=== PATIENT | female | born 1955 | race Two or more races ===

== ENCOUNTER 2023-02-19 15:32 | Observation (INO) | payer MEDICARE, OTHER ==
[~2023-02-19] VITALS: Ht 170.2 cm; Wt 76.0 kg
[2023-02-19] MEDS ORDERED: VITA100054 PO ×2 (16:12)
[2023-02-19] MEDS ORDERED: ESTR1CAP2 PO (16:12)
[2023-02-19] MEDS ORDERED: OMEG10002 PO (16:12)
[2023-02-19] MEDS ORDERED: VITA100C8 PO (16:12)
[2023-02-19] MEDS ORDERED: CRAN450T4 PO (16:12)
[2023-02-19] MEDS ORDERED: NEPHTAB2 PO (16:13)
[2023-02-19] MEDS ORDERED: ONDANSETRON 4MG 2ML VIAL IV ONE (16:55)
[2023-02-19] MEDS: MORPHINE 4 MG/ML 1ML VIAL IV PRN ×2 (17:09→18:58)
[2023-02-19 19:29] LABS: BASO % 0.3 % (0.0-1.0); HEMATOCRIT 41.8 % (36.0-47.0); HEMOGLOBIN 13.8 g/dl (12.0-15.5); LYMPH # 0.8 10^3/uL (1.5-5.0); LYMPH % 5.5 % (24.0-44.0); MEAN CORPUSCULAR HEMOGLOBIN 33.2 pg (27.0-33.0); MEAN CORPUSCULAR VOLUME 100.5 fl (80.0-96.0); MONO # 0.7 10^3/uL (0.0-0.8); NEUTROPHILS # 12.9 10^3/uL (1.5-8.5); NEUTROPHILS % 88.7 % (36.0-66.0); PLATELET COUNT, AUTOMATED 255 10^3/uL (150-450); RED BLOOD COUNT 4.16 10^6/uL (4.00-5.40); WHITE BLOOD COUNT 14.5 10^3/uL (4.0-10.0)
[2023-02-19 19:39] LABS: INR 1.01
[2023-02-19 19:56] LABS: BLOOD UREA NITROGEN 19 MG/DL (9-23); CALCIUM LEVEL 9.2 MG/DL (8.3-10.6); CARBON DIOXIDE LEVEL 27 MMOL/L (20-31); CHLORIDE LEVEL 107 MMOL/L (98-107); CREATININE FOR GFR 0.61 MG/DL (0.55-1.30); GLOMERULAR FILTRATION RATE > 60.0 (>45); GLUCOSE, FASTING 160 MG/DL (74-106); POTASSIUM SERUM 4.3 MMOL/L (3.5-5.1); SODIUM LEVEL 141 MMOL/L (136-145)
[2023-02-19] MEDS ORDERED: MAGN400T2 PO (20:33)
[2023-02-19] MEDS ORDERED: HOME MED LIST COMPLETE! XX SCH (20:35)
[2023-02-19] MEDS ORDERED: ONDANSETRON 4MG 2ML VIAL IV PRN (22:35)
[2023-02-19] MEDS ORDERED: HYDROMORPHONE HCL 0.5 MG/ 0.5 ML SYRINGE IV PRN (22:35)
[2023-02-19 23:37] VITALS: BP 138/64; TEMP 97.5; O2SAT 98
[2023-02-20] MEDS: HYDROMORPHONE HCL 0.5 MG/ 0.5 ML SYRINGE IV PRN ×2 (00:05→05:46)
[2023-02-20] MEDS: LR 1,000 ML IV SCH ×3 (00:18→16:36)
[2023-02-20 05:15] VITALS: BP 119/64; TEMP 97.9; O2SAT 97
[2023-02-20] MEDS ORDERED: MORPHINE 2 MG/ML 1ML VIAL IV PRN (07:25)
[2023-02-20] MEDS ORDERED: ACETAMINOPHEN TAB 650MG DOSE (2X325MG) PO PRN (07:25)
[2023-02-20] MEDS ORDERED: KETOROLAC 30 MG/ML 1ML VIAL IV PRN ×2 (07:25)
[2023-02-20 08:10] LABS: ALBUMIN 3.4 G/DL (3.2-5.2); ALKALINE PHOSPHATASE 71 U/L (46-116); ALT/SGPT 19 U/L (7.0-40); AST/SGOT 16 U/L (<34); BILIRUBIN,TOTAL 1.7 MG/DL (0.3-1.2); BLOOD UREA NITROGEN 20 MG/DL (9-23); CALCIUM LEVEL 8.8 MG/DL (8.3-10.6); CARBON DIOXIDE LEVEL 26 MMOL/L (20-31); CHLORIDE LEVEL 107 MMOL/L (98-107); CREATININE FOR GFR 0.58 MG/DL (0.55-1.30); GLOMERULAR FILTRATION RATE > 60.0 (>45); GLUCOSE, FASTING 101 MG/DL (74-106); POTASSIUM SERUM 4.2 MMOL/L (3.5-5.1); SODIUM LEVEL 141 MMOL/L (136-145); TOTAL PROTEIN 6.1 G/DL (5.7-8.2)
[2023-02-20] MEDS: LIDOCAINE 5% (LIDODERM) PATCH TD SCH (08:20)
[2023-02-20] MEDS: CYCLOBENZAPRINE 5MG TABLET PO SCH ×2 (13:17→20:51)
[2023-02-20 15:42] LABS: TOTAL 25(OH) VITAMIN D 41.2 NG/ML (20.0-100.0)
[2023-02-20] MEDS: CEFDINIR 300 MG CAP (OMNICEF) PO SCH (20:51)
[2023-02-20 21:00] VITALS: BP 161/79; TEMP 98.2; O2SAT 97
[2023-02-20] MEDS ORDERED: SUGAMMADEX SODIUM 500 MG/5 ML VIAL (BRIDION) As Ordered ONE (22:02)
[2023-02-20] MEDS ORDERED: ONDANSETRON 4MG 2ML VIAL As Ordered ONE (22:02)
[2023-02-20] MEDS ORDERED: propofoL 200 MG/20 ML VIAL As Ordered ONE (22:02)
[2023-02-20] MEDS ORDERED: LIDOCAINE 2% 100MG/5ML SDV (FOR ANES.) As Ordered ONE (22:02)
[2023-02-20] MEDS ORDERED: ROCURONIUM BROMIDE 50MG/5ML VIAL As Ordered ONE (22:02)
[2023-02-20] MEDS ORDERED: fentaNYL 100 MCG/2 ML INJECTION As Ordered ONE (22:41)
[2023-02-20] MEDS ORDERED: MIDAZOLAM INJ 2MG/2ML VIAL As Ordered ONE (22:41)
[2023-02-20] MEDS ORDERED: TRANEXAMIC ACID 100 MG/ML 10ML VIAL As Ordered ONE (23:15)
[2023-02-20] MEDS ORDERED: ceFAZolin 2 GM/D5W 50 ML IV BAG As Ordered ONE (23:16)
[2023-02-20] MEDS ORDERED: ACETAMINOPHEN 1000MG 100ML IV BAG As Ordered ONE (23:55)
[2023-02-21] MEDS ORDERED: HYDROmorphone HCL 2MG/ML 1ML VIAL As Ordered ONE (00:10)
[2023-02-21 02:00] VITALS: BP 111/63; TEMP 97.9; O2SAT 95
[2023-02-21] MEDS ORDERED: LR 1,000 ML IV SCH (02:15)
[2023-02-21 02:30] VITALS: BP 110/62; TEMP 97.9; O2SAT 94
[2023-02-21 03:30] VITALS: BP 114/60; TEMP 97.6; O2SAT 95
[2023-02-21 04:30] VITALS: BP 109/57; TEMP 97.4; O2SAT 94
[2023-02-21 05:30] VITALS: BP 124/69; TEMP 97.7; O2SAT 94
[2023-02-21] MEDS: CYCLOBENZAPRINE 5MG TABLET PO SCH (06:02)
[2023-02-21 06:30] VITALS: BP 121/64; TEMP 97.7; O2SAT 92
[2023-02-21 07:02] LABS: HEMATOCRIT 37.6 % (36.0-47.0); HEMOGLOBIN 12.5 g/dl (12.0-15.5); MEAN CORPUSCULAR HEMOGLOBIN 33.4 pg (27.0-33.0); MEAN CORPUSCULAR HGB CONC 33.2 g/dl (32.0-36.5); MEAN CORPUSCULAR VOLUME 100.5 fl (80.0-96.0); PLATELET COUNT, AUTOMATED 215 10^3/uL (150-450); RED BLOOD COUNT 3.74 10^6/uL (4.00-5.40); WHITE BLOOD COUNT 12.3 10^3/uL (4.0-10.0)
[2023-02-21] MEDS: CEFDINIR 300 MG CAP (OMNICEF) PO SCH (08:25)
[2023-02-21] MEDS: LIDOCAINE 5% (LIDODERM) PATCH TD SCH (08:25)
[2023-02-21] MEDS ORDERED: LIDO5TD TD (09:55)
[2023-02-21] MEDS ORDERED: TRAM50TA2 PO (09:55)
[2023-02-21] MEDS ORDERED: IBUP-1022 PO (09:55)
[2023-02-21] MEDS ORDERED: CEFD300CAP PO (09:55)
[2023-02-21] MEDS ORDERED: ACET1TAB55 PO (09:56)
[2023-02-21] MEDS ORDERED: ASPI81CH33 PO (09:59)
== END 2023-02-21 12:00 | disposition home or self-care (01) ==
LOC: M ED 15:32 → EDBD 15:32 → M ED INP 17:23 → UNDOADMIN 17:23 → M ED INP 21:04 → M MS5PR 23:15
PROVIDERS: ADMIT Internal Medicine; ATTEND Student in an Organized Health Care Education/Training Program
DX: S42.201A Unspecified fracture of upper end of right humerus, initial encounter for closed fracture (principal); W19.XXXA Unspecified fall, initial encounter; Y92.000 Kitchen of unspecified non-institutional (private) residence as the place of occurrence of the external cause; Y93.9 Activity, unspecified; Y99.9 Unspecified external cause status; Z88.5 Allergy status to narcotic agent; Z79.82 Long term (current) use of aspirin; Z79.899 Other long term (current) drug therapy
CPT/HCPCS: 24516; 36415; 71045; 73030; 73060; 73080; 73200; 76000; 80048; 80053; 81001; 82306; 85025; 85027; 85610; 86850; 86900; 86901; 87088; 87186; 87635; 93005; 96361; 96374; 96375; 96376; 97161; 97530; 99285; C1713; C9290; G0378; J0131; J0665; J0690; J1100; J1170; J1885; J2250; J2405; J3010

== ENCOUNTER → 2023-02-27 | Outpatient (CLI) | payer MEDICARE, OTHER ==
[~2023-02-27] MED LIST: ACET1TAB55 PO; ASPI81CH33 PO; CEFD300CAP PO; CRAN450T4 PO; ESTR1CAP2 PO; IBUP-1022 PO; LIDO5TD TD; MAGN400T2 PO; NEPHTAB2 PO; OMEG10002 PO; TRAM50TA2 PO; VITA100054 PO; VITA100C8 PO
== END ==
LOC: M SOG 08:04
PROVIDERS: ATTEND Physician Assistant
DX: M79.601 Pain in right arm (principal)